=== PATIENT | male | born 1960 | race Caucasian/White ===

== ENCOUNTER 2023-07-04 05:38 | Observation (INO) ==
--- NOTE | 2023-06-29 09:24 | Anesthesiology Consultation ---
Date of Service June 29, 2023 Assessment & Plan (1) Encounter for pre-operative examination: Chart Review Chart Review: Acceptable Risk for Surgery and Patient NOT seen in Pre Admission Testing -Infectious Disease screening: Per PAT nursing assessment on 06/28/23. No known infectious disease contacts in past 10 days or current infectious disease symptoms. No recent travel outside the country. History Surgery Operation Date: 07/04/23 08:40 Proposed Procedures p Laparoscopic Robotic Assisted Radical Retropubic Prostatectomy, Possible Open, Possible Pelvic Lymph Node Dissection - Vu Bailey MD Height/Weight Height: 5 ft 9 in Weight: 83.915 kg Allergies Allergy/AdvReac Type Severity Reaction Status Date / Time No Known Allergies Allergy Verified 06/28/23 15:36 Medications Home Medications Medication Instructions Recorded Confirmed Last Taken aspirin 81 mg tablet,delayed 81 mg PO 2XWK 05/31/23 06/28/23 Unknown release multivitamin 1 tab PO 3XWK 05/31/23 06/28/23 Unknown Past Medical History Medical History Benign localized prostatic hyperplasia with lower urinary tract symptoms (LUTS) History of COVID-19 diagnosed 03/2021--mild symptoms, no symptoms now History of kidney stones Snores has not been tested for sleep apnea Past Family History Family History Other No family history of adverse response to anesthesia Past Surgical History Surgical History History of appendectomy History of arthroscopy of right knee History of bilateral inguinal hernia repair History of colonoscopy History of esophagogastroduodenoscopy (EGD) History of eye surgery multiple on both eyes after lasik eye surgery History of photorefractive keratectomy (PRK) History of prostate biopsy History of shoulder surgery left History of tonsillectomy History of tooth extraction History of wisdom tooth extraction Hx of LASIK Social History Smoking Status: Light tobacco smoker Smoking cigarettes per day: takes 4 days to go through a pack of cigs (advised on policy) Do You Dip or Chew Tobacco: No Hx Alcohol Use: Yes (very rarely has a beer) Alcohol type: beer alcohol intake frequency: holidays/special occasions only Hx Substance Use: No substance use type: does not use Lab Results Anesthesia Preop Results Results Anesthesia Widget: WBC 9.57 K/ul (4.8-10.8) 06/22/23 Hgb 15.7 g/dl (14.0-18.0) 06/22/23 Hct 46.1 % (42.0-52.0) 06/22/23 Plt 304 K/uL (130-400) 06/22/23 Na 137 mmol/L (136-145) 06/22/23 K 4.0 mmol/L (3.5-5.1) 06/22/23 Cl 104 mmol/L (98-107) 06/22/23 CO2 28 mmol/L (21-32) 06/22/23 BUN 19 mg/dl (6-23) 06/22/23 Creat 0.99 mg/dl (0.6-1.4) 06/22/23 Glucose Level 92 mg/dl (70-99(Fasting)) 06/22/23 Testing Laboratory Results 06/22/23= URINE CULTURE: No growth- less than 1000 colonies/ml Electrocardiogram Date: 06/22/23 Findings: + NSR @ (73bpm ) Normal EKG per cardio Chest X-Ray Date: 06/22/23 Findings: + NAD
[2023-07-04] MEDS ORDERED: HEPARIN SOD 5,000 UNIT/0.5 ML VIAL SQ SCH (06:00)
[2023-07-04] MEDS ORDERED: LR 15ML/HR IV SCH (06:00)
[2023-07-04] MEDS ORDERED: ePHEDrine sulfate 50 MG/ML AMP IV PRN (06:33)
[2023-07-04] MEDS ORDERED: ATROPINE SULFATE 0.1 MG/ML 10ML SYR IV PRN (06:33)
[2023-07-04] MEDS ORDERED: ONDANSETRON INJ 2 MG/ML 2 ML VIAL IV PRN ×2 (06:33→13:16)
[2023-07-04] MEDS ORDERED: SCOPOLAMINE 1 MG TDSY TD ONE ×2 (06:44→06:47)
[2023-07-04] MEDS ORDERED: PROPOFOL IV EMULSION 10 MG/ML 20 ML VIAL IV ONE (06:47)
[2023-07-04] MEDS ORDERED: fentaNYL citrate PF 100 MCG/2 ML VIAL ONE ×3 (06:47→10:52)
[2023-07-04] MEDS ORDERED: ROCURONIUM BROMIDE 10 MG/ML 5 ML VIAL IV ONE ×2 (06:47→09:09)
[2023-07-04] MEDS ORDERED: MIDAZOLAM HCL 1 MG/ML 2ML VIAL ONE (06:47)
[2023-07-04] MEDS ORDERED: LIDOCAINE 2% 2 ML VIAL/AMP(20MG/ML) INFIL ONE (06:52)
[2023-07-04] MEDS ORDERED: BUPIVACAINE 0.5 % 5 MG/1 ML MPF 30ML VIAL ONE (07:09)
--- NOTE | 2023-07-04 07:34 | History & Physical Bridge Note ---
Date of Service July 04, 2023 History & Physical Bridge Note I have examined the patient, reviewed the History & Physical and in the interval since the performance of the History & Physical I have noted the following changes of clinical significance: no changes noted
--- NOTE | 2023-07-04 07:45 | History & Physical Bridge Note ---
Date of Service July 04, 2023 History & Physical Bridge Note I have examined the patient, reviewed the History & Physical and in the interval since the performance of the History & Physical I have noted the following changes of clinical significance: no changes noted CLARIFICATION - WE ARE PERFORMING A ROBOTIC ASSISTED SIMPLE PROSTATECTOMY, NOT A RADICAL PROSTATECTOMY
[2023-07-04] MEDS ORDERED: ONDANSETRON INJ 2 MG/ML 2 ML VIAL ONE (09:09)
[2023-07-04] MEDS ORDERED: SURGICEL ABSORB HEMOSTAT 2IN X 14IN TOP ONE (10:30)
[2023-07-04] MEDS ORDERED: SUGAMMADEX SODIUM 200 MG/2 ML VIAL IV ONE (11:30)
--- NOTE | 2023-07-04 12:18 | Operative Report ---
PG Post Operative Report Pre & Post Diagnosis Operation Date: 07/04/23 07:30 Pre-Op Diagnosis: Benign Localized Prostatic Hyperplasia with Lower Urinary Tract Symptoms Post-Op Diagnosis: Benign Localized Prostatic Hyperplasia with Lower Urinary Tract Symptoms I identified the patient and participated in the time-out.: Yes Procedure Operation Date: 07/04/23 07:30 Actual Procedures p Robotic Assisted Laparoscopic Simple Prostatectomy, Possible Pelvic Lymph Node Dissection(Not Applicable) - Vu Bailey MD Surgeon Vu Bailey MD Boiler Tube Reamer Lillie Gomes Estimated Blood Loss 250 Findings Consistent with Post-Op Diagnosis Specimens Prostate Description of Procedure Patient was identified in the preoperative holding area appropriate informed consents reviewed and completed he was transported to the operating suite. Upon arrival he was placed in supine position, adequate general anesthesia was induced, appropriate biotics were administered. He was sterilely prepped and draped in standard fashion. On the sterile field a Charles catheter was inserted. Veress needle was passed per umbilicus and the abdomen insufflated. Of note he has had a prior right open appendectomy, because of this I entered the abdomen in the left lower quadrant with the robotic port and Visiport element. Inspection revealed adhesive disease around the midline and his prior appendectomy site. I marked all port sites in standard robotic prostatectomy fashion and placed the left-sided ports and the 5 mm aquatics assistant department head port first. Utilizing these ports I was able to perform lysis of adhesions. This took approximately 25 minutes. This freed the abdominal wall and allowed placement of the remainder of the ports. The robot was then docked after the patient was placed in slight Trendelenburg position. After completing lysis of adhesions with the robot, I was able to inflate the bladder with normal saline. This allowed a clear demarcation of the dome of the bladder and I made an upper posterior wall transverse incision of approximately 10 cm. Bladder was drained and internally inspected. He has a very large intravesical median lobe with inflammation around it. Ureteral orifices were identified and fortunately were not immediately adjacent to the prostate. I used 2 oh V-Loc sutures as retraction stitches in 4 locations around the cystotomy to facilitate visualization internally into the bladder. I then used a 0 Vicryl stitch through the intravesical median lobe to elevate the prostate. I carefully made an incision posterior to the lip of the prostate tissue with care to avoid encroachment upon the UOs. The Charles catheter balloon was deflated and withdrawn into the urethra at this time. I then completed a circumferential incision around the prostatic tissue and bladder neck. I carefully dissected onto the adenoma of the lateral lobes. Of note, his prostate is somewhat left-sided with substantially more tissue on the left than the right. He also had scant posterior tissue as most of his intravesical lobe appears to be arising from the left lateral lobe. We meticulously and carefully worked our way around the adenoma circumferentially. There was relatively good hemostasis throughout and only gentle oozing. As the prostate began to curve towards the apex I carefully worked my way down to the catheter. We visualized the catheter near the apex and I did split the prostate posteriorly to allow better visualization. I then was able to transect entirely at the level of the distal prostate. The adenoma was removed from its fossa and placed out of our immediate [id number]. Inspection at that time revealed excellent hemostasis. There was a bit of oozing from anterior veins and I oversewed this with a running 3 OV lock suture. I then proceeded to perform a full anastomosis in the fashion of a robotic radical prostatectomy. An double-armed suture was introduced from the outside of the bladder at the posterior bladder neck and ultimately sewed in running fashion around the urethra and bladder neck. This walled off the majority of the prostatic fossa and created a nice funnel type shape to the bladder outlet. Hemostasis was excellent. A new Charles catheter was passed and easily manipulated into the bladder. Before inflating the balloon I performed a closure of the cystotomy in multiple layers. I closed the inner layer with a 3-0 running chromic suture followed by a 3 oh V-Loc stitch to thicken this area and it closed muscle. I then imbricated a 2 OV lock stitch to further insulate the closure. We did test this after the first 2 layers and it was watertight. After completing the bladder closure a LEEANNA drain was inserted through the left lateralmost robotic port. The prostatic specimen was collected in an Endo Catch bag which was ultimately extracted after expansion of the periumbilical port. This fascia was then closed with a series of 0 PDS [id number] stitches. Half percent Marcaine was used to anesthetize all of the incisions and underlying subcutaneous tissues. The drain was sutured in place with a 2-0 nylon. The other incisions were closed with 4-0 Monocryl. Dermabond was placed over the incisions. There were no complications. The specimen was passed off the table for pathology. Lillie Gomes assisted from incision to closure and throughout the whole case. I attest to the content of the Intraoperative Record and any orders documented therein. Any exceptions are noted below.
[2023-07-04] MEDS: fentaNYL citrate PF 100 MCG/2 ML VIAL IV PRN ×2 (12:19→12:39)
[2023-07-04 12:35] LABS: Basophils # (auto) 0.05 K/uL (0.00-0.20); Basophils % (auto) 0.3 %; Eosinophils # (auto) 0.01 K/uL (0.00-0.50); Eosinophils % (auto) 0.1 %; Hematocrit (blood only) 43.3 % (42.0-52.0); Hemoglobin 14.9 g/dl (14.0-18.0); Immature Granulocytes # (auto) 0.05 K/uL (0.01-0.20); Immature Granulocytes % (auto) 0.3 %; Lymphocytes # (auto) 1.75 K/uL (1.20-3.40); Lymphocytes % (auto) 10.3 %; Mean Corpuscular Hgb Conc 34.4 g/dL (32.0-36.0); Mean Corpuscular Volume 92.9 fL (80.0-100.0); Mean Platelet Volume 8.5 fL (9.4-12.4); Monocytes # (auto) 0.86 K/uL (0.11-0.59); Neutrophils # (auto) 14.32 K/uL (1.40-6.50); Platelet Count 299 K/uL (130-400); RDW Coefficient of Variation 12.8 % (11.5-14.5); RDW Standard Deviation 43.3 fL (36.4-46.3); Red Blood Count 4.66 M/uL (4.70-6.10); White Blood Count 17.04 K/ul (4.8-10.8)
[2023-07-04 12:54] LABS: Calcium 8.6 mg/dl (8.6-10.3); Potassium 4.5 mmol/L (3.5-5.1)
[2023-07-04 13:00] LABS: BUN Creatinine Ratio 17.4 (10-20); Creatinine Clr Calc Pharmacy 62.5 ml/min; Est GFR (African American) 73.4 ml/min; Est GFR (Non-African American) 63.3 ml/min
[2023-07-04] MEDS ORDERED: oxyBUTYnin chloride 5 MG TAB PO PRN (13:16)
[2023-07-04] MEDS ORDERED: ACETAMINOPHEN 325 MG TAB PO PRN (13:16)
[2023-07-04] MEDS ORDERED: oxyCODONE HCL IR 5 MG TAB (IMMEDIATE RELEASE) PO PRN (13:16)
[2023-07-04] MEDS ORDERED: MoRPHine SULFATE 2 MG/ML CARP IV PRN (13:16)
--- NOTE | 2023-07-04 13:28 | Anesthesiology Progress Note ---
Date of Service July 04, 2023 Anesthesia Post Procedure Vital Signs Vital Signs: Temp Pulse Pulse Resp BP BP Pulse Ox 07/04/23 13:15 98.1 F 73 16 143/84 H 98 07/04/23 13:00 97.3 F L 84 12 139/81 95 07/04/23 12:50 83 12 135/76 98 07/04/23 12:40 75 12 152/88 H 99 07/04/23 12:30 87 13 131/80 98 07/04/23 12:20 74 12 122/82 99 07/04/23 12:11 97.0 F L 84 13 135/88 100 07/04/23 06:34 98.6 F 61 18 113/77 97 O2 Del Method O2 Flow Rate 07/04/23 13:15 Room Air 07/04/23 13:00 Room Air 07/04/23 12:50 Oxymask 3 07/04/23 12:40 Oxymask 5 07/04/23 12:30 Oxymask 9 07/04/23 12:20 Oxymask 9 07/04/23 12:11 Oxymask 9 07/04/23 06:34 Room Air Pain Intensity Abdomen: Pain Intensity: 6 Transfer of Care Handoff Completed per policy Notes Mental Status: alert / awake / arousable and participated in evaluation Patient Amnestic to Procedure: Yes Nausea / Vomiting: adequately controlled Pain: adequately controlled Airway Patency, RR, SpO2: stable & adequate BP & HR: stable & adequate Hydration State: stable & adequate Anesthetic Complications: no major complications apparent and Pt Satisfied with anesthetic care
[2023-07-04] MEDS: LACTATED RINGER'S 1,000 ML IV SCH ×2 (13:32→23:13)
[2023-07-04] MEDS: oxyCODONE HCL IR 5 MG TAB (IMMEDIATE RELEASE) PO PRN (13:34)
[2023-07-04] MEDS: MoRPHine SULFATE 4 MG/ML 1 ML CARP\\VIAL IV PRN (14:59)
[2023-07-04] MEDS ORDERED: CHECK SCOPOLAMINE PATCH PLACEMENT SCH (16:00)
[2023-07-04] MEDS: ceFAZolin 2000MG 2,000 MG/15 ML SYR IV SCH ×2 (16:35→23:13)
[2023-07-04] MEDS ORDERED: diazePAM 2 MG TABLET PO PRN (16:40)
[2023-07-04] MEDS ORDERED: KETOROLAC TROMETHAMINE 15 MG/ML VIAL IM PRN (16:41)
[2023-07-04] MEDS: HEPARIN SOD 5,000 UNIT/0.5 ML VIAL SQ SCH (20:03)
[2023-07-04] MEDS: DOCUSATE SODIUM 100 MG CAP PO SCH (20:03)
[2023-07-05] MEDS ORDERED: FAMOTIDINE 10 MG TABLET PO ONE (00:59)
[2023-07-05] MEDS: CALCIUM CARBONATE 500 MG CHEWABLE TAB PO PRN ×2 (01:12→20:25)
[2023-07-05] MEDS: MoRPHine SULFATE 4 MG/ML 1 ML CARP\\VIAL IV PRN (05:01)
[2023-07-05 06:58] LABS: Hematocrit (blood only) 40.4 % (42.0-52.0); Hemoglobin 13.5 g/dl (14.0-18.0); Mean Corpuscular Hemoglobin 31.6 pg (25.0-34.0); Mean Corpuscular Hgb Conc 33.4 g/dL (32.0-36.0); Mean Corpuscular Volume 94.6 fL (80.0-100.0); Platelet Count 256 K/uL (130-400); RDW Coefficient of Variation 12.8 % (11.5-14.5); RDW Standard Deviation 44.5 fL (36.4-46.3); Red Blood Count 4.27 M/uL (4.70-6.10); White Blood Count 15.52 K/ul (4.8-10.8)
[2023-07-05 07:30] LABS: Basophils # (auto) 0.03 K/uL (0.00-0.20); Basophils % (auto) 0.2 %; Eosinophils # (auto) 0.09 K/uL (0.00-0.50); Eosinophils % (auto) 0.6 %; Immature Granulocytes % (auto) 0.6 %; Lymphocytes # (auto) 0.51 K/uL (1.20-3.40); Lymphocytes % (auto) 3.3 %; Monocytes # (auto) 0.78 K/uL (0.11-0.59); Neutrophils # (auto) 14.01 K/uL (1.40-6.50); Neutrophils % (auto) 90.3 %
[2023-07-05 07:31] LABS: Calcium 8.5 mg/dl (8.6-10.3); Potassium 4.4 mmol/L (3.5-5.1)
[2023-07-05 07:36] LABS: BUN Creatinine Ratio 15.8 (10-20); Creatinine Clr Calc Pharmacy 56.8 ml/min; Est GFR (African American) 65.5 ml/min; Est GFR (Non-African American) 56.5 ml/min
--- NOTE | 2023-07-05 08:09 | Urology Progress Note ---
Date of Service July 05, 2023 Assessment & Plan (1) Benign localized prostatic hyperplasia with lower urinary tract symptoms (LUTS): Plan: BPH with substantial enlargement now status post robotic simple prostatectomy Recovery on pace Labs appropriate Ambulate today, advance diet Possible DC home tomorrow Admission and Anticipated Discharge Date Admission Date: July 04, 2023 Subjective Doing well overall Has some expected abdominal discomfort and bladder spasm type pain but his urine is clearing appropriately Appropriate LEEANNA output Labs all stable and expected Creatinine 1.3, hemoglobin 13.5 No nausea, abdomen soft and not distended Progressing appropriately Physical Exam Physical Exam: Incisions appropriate, LEEANNA with minimal output, urine clearing Results & Data Vital Signs (Past 12 Hours) Vital Signs Temp Pulse Resp BP Pulse Ox O2 Del Method 07/05/23 07:20 37.1 C 80 16 111/77 94 Room Air 07/05/23 04:30 37 C 97 H 18 115/73 95 Room Air 07/05/23 03:05 Room Air 07/05/23 00:30 36.6 C 87 18 101/59 L 92 Room Air 07/04/23 20:32 36.9 C 83 18 113/67 97 Room Air PG Care Time/CCT Total # of Minutes Spent Total Time Spent with Patient: Total time spent is greater than 50% in coordination of care (as documented) at patient's floor/unit and/or counseling patient: Coding Level of Care Code 05820 SUB INP/OBS CARE 2/35MIN Diagnoses Benign localized prostatic hyperplasia with lower urinary tract symptoms (LUTS) N40.1
[2023-07-05] MEDS: DOCUSATE SODIUM 100 MG CAP PO SCH ×2 (08:18→20:25)
[2023-07-05] MEDS: HEPARIN SOD 5,000 UNIT/0.5 ML VIAL SQ SCH ×2 (08:19→20:25)
[2023-07-05] MEDS: LACTATED RINGER'S 1,000 ML IV SCH ×2 (08:21→16:44)
[2023-07-05] MEDS: oxyCODONE HCL IR 5 MG TAB (IMMEDIATE RELEASE) PO PRN ×2 (16:09→23:15)
[2023-07-06] MEDS: LACTATED RINGER'S 1,000 ML IV SCH (02:18)
[2023-07-06] MEDS: oxyCODONE HCL IR 5 MG TAB (IMMEDIATE RELEASE) PO PRN ×3 (06:19→19:09)
[2023-07-06 07:34] LABS: Basophils # (auto) 0.02 K/uL (0.00-0.20); Basophils % (auto) 0.1 %; Eosinophils # (auto) 0.29 K/uL (0.00-0.50); Eosinophils % (auto) 2.2 %; Hematocrit (blood only) 34.2 % (42.0-52.0); Immature Granulocytes # (auto) 0.06 K/uL (0.01-0.20); Immature Granulocytes % (auto) 0.4 %; Lymphocytes # (auto) 0.99 K/uL (1.20-3.40); Lymphocytes % (auto) 7.4 %; Mean Corpuscular Hemoglobin 32.7 pg (25.0-34.0); Mean Corpuscular Hgb Conc 35.1 g/dL (32.0-36.0); Mean Corpuscular Volume 93.2 fL (80.0-100.0); Mean Platelet Volume 9.3 fL (9.4-12.4); Monocytes # (auto) 0.89 K/uL (0.11-0.59); Monocytes % (auto) 6.7 %; Neutrophils # (auto) 11.11 K/uL (1.40-6.50); Neutrophils % (auto) 83.2 %; Platelet Count 201 K/uL (130-400); RDW Coefficient of Variation 12.7 % (11.5-14.5); RDW Standard Deviation 43.7 fL (36.4-46.3); Red Blood Count 3.67 M/uL (4.70-6.10); White Blood Count 13.36 K/ul (4.8-10.8)
[2023-07-06 08:20] LABS: BUN Creatinine Ratio 16.5 (10-20); Calcium 8.2 mg/dl (8.6-10.3); Creatinine Clr Calc Pharmacy 77.9 ml/min; Est GFR (African American) 95.9 ml/min; Est GFR (Non-African American) 82.7 ml/min; Potassium 4.1 mmol/L (3.5-5.1)
[2023-07-06] MEDS: DOCUSATE SODIUM 100 MG CAP PO SCH ×2 (08:39→20:53)
[2023-07-06] MEDS: HEPARIN SOD 5,000 UNIT/0.5 ML VIAL SQ SCH ×2 (09:14→20:53)
--- NOTE | 2023-07-06 10:25 | Urology Progress Note ---
Date of Service July 06, 2023 Assessment & Plan (1) Benign localized prostatic hyperplasia with lower urinary tract symptoms (LUTS): Plan -BPH with substantial enlargement now postop day #2 status post robotic simple prostatectomy -Progressing appropriately -Afebrile and hemodynamically stable. -Labs reviewed and stable - white count 13.36, hemoglobin 12, creatinine 0.97. -LEEANNA with minimal serosanguineous drainage. -Charles draining appropriatelyurine is light pink. -Continue diet. -D/C IV fluids. Encourage hydration. -Encourage ambulation. -Maintain Charles catheter -Remove LEEANNA drain -Continue supportive care and pain management as needed. -Will reassess after lunch with plans for possible discharge home later today or tomorrow pending patient progression. Admission and Anticipated Discharge Date Admission Date: July 04, 2023 Subjective Patient examined at bedside this AM with . Awake, resting in bed on arrival. No acute distress. No acute issues overnight. Denies fever, chills, nausea, vomiting. Still with abdominal discomfort, mostly with movement/ambulation. Managing with medication. LEEANNA with minimal serosanguineous drainage. Charles intact and draining pink urine. Tolerating diet. Has ambulated without issue. Reports some indigestion. No belching or flatus. Review of Systems Constitutional: as per Subjective / HPI Gastrointestinal: as per Subjective / HPI Genitourinary: + as per Subjective / HPI Physical Exam Constitutional: no acute distress Respiratory: no respiratory distress and no labored breathing Gastrointestinal (Abdomen): Abdomen soft, not distended, mild tenderness with palpation. Incisions appropriate, Dermabond intact. LEEANNA intact with minimal serosanguineous drainage. Musculoskeletal: Head/Neck/Chest: normocephalic Skin: No visible rashes or lesions to exposed skin areas Neurologic: moves all extremities and awake Psychiatric: A+Ox3, euthymic affect Genitourinary: Charles intact and draining pink urine Results & Data Vital Signs (Past 12 Hours) Vital Signs Temp Pulse Resp BP Pulse Ox O2 Del Method 07/06/23 07:30 37 C 90 18 109/66 93 Room Air 07/05/23 23:12 97 H 114/68 PG Care Time/CCT Total # of Minutes Spent Total Time Spent with Patient: Total time spent is greater than 50% in coordination of care (as documented) at patient's floor/unit and/or counseling patient: Coding Level of Care Code None Diagnoses Benign localized prostatic hyperplasia with lower urinary tract symptoms (LUTS) N40.1
[2023-07-06] MEDS ORDERED: MAGNESIUM HYDROXIDE SUSP 30 ML UDC PO PRN (14:16)
[2023-07-06] MEDS: CALCIUM CARBONATE 500 MG CHEWABLE TAB PO PRN (22:32)
[2023-07-07] MEDS: oxyCODONE HCL IR 5 MG TAB (IMMEDIATE RELEASE) PO PRN ×2 (06:50→12:02)
[2023-07-07 07:43] LABS: Basophils # (auto) 0.01 K/uL (0.00-0.20); Basophils % (auto) 0.1 %; Eosinophils # (auto) 0.34 K/uL (0.00-0.50); Hematocrit (blood only) 32.2 % (42.0-52.0); Hemoglobin 11.1 g/dl (14.0-18.0); Immature Granulocytes # (auto) 0.04 K/uL (0.01-0.20); Immature Granulocytes % (auto) 0.5 %; Lymphocytes # (auto) 1.11 K/uL (1.20-3.40); Lymphocytes % (auto) 13.1 %; Mean Corpuscular Hemoglobin 32.1 pg (25.0-34.0); Mean Corpuscular Hgb Conc 34.5 g/dL (32.0-36.0); Mean Corpuscular Volume 93.1 fL (80.0-100.0); Mean Platelet Volume 9.2 fL (9.4-12.4); Monocytes # (auto) 0.84 K/uL (0.11-0.59); Monocytes % (auto) 9.9 %; Neutrophils # (auto) 6.14 K/uL (1.40-6.50); Neutrophils % (auto) 72.4 %; Platelet Count 213 K/uL (130-400); RDW Coefficient of Variation 12.6 % (11.5-14.5); RDW Standard Deviation 43.2 fL (36.4-46.3); Red Blood Count 3.46 M/uL (4.70-6.10); White Blood Count 8.48 K/ul (4.8-10.8)
[2023-07-07 08:11] LABS: BUN Creatinine Ratio 15.3 (10-20); Calcium 8.6 mg/dl (8.6-10.3); Creatinine Clr Calc Pharmacy 77.2 ml/min; Est GFR (African American) 94.7 ml/min; Est GFR (Non-African American) 81.7 ml/min
[2023-07-07] MEDS ORDERED: LIDOCAINE 2% JELLY 5 ML TUBE EXT PRN (08:21)
[2023-07-07] MEDS: DOCUSATE SODIUM 100 MG CAP PO SCH (08:39)
[2023-07-07] MEDS: HEPARIN SOD 5,000 UNIT/0.5 ML VIAL SQ SCH (08:39)
--- NOTE | 2023-07-07 10:34 | Urology Progress Note ---
Date of Service July 07, 2023 Assessment & Plan (1) Benign localized prostatic hyperplasia with lower urinary tract symptoms (LUTS): Plan -BPH with substantial enlargement now postop day #3 status post robotic simple prostatectomy -Progressing appropriately -Afebrile and hemodynamically stable. -Labs reviewed and stable - white count 8.48, hemoglobin 11.1, creatinine 0.98. -Charles draining appropriatelyurine is light pink. -Tolerating diet. -Ambulating without issue. -Pain managed with medication. -Stable for discharge home today with Charles catheter. -Postoperative follow-up appointments in place. -Discharge instructions reviewed, all questions were answered. Admission and Anticipated Discharge Date Admission Date: July 04, 2023 Subjective Patient examined at bedside this AM. Awake, resting in bed on arrival. No acute distress. No acute issues overnight. Denies fever, chills, nausea, vomiting. Still with abdominal discomfort, mostly with movement/ambulation. Managing with medication. LEEANNA drain removed yesterday. Charles intact and draining pink urine. Tolerating diet. Has ambulated without issue. +Flatus. Review of Systems Constitutional: as per Subjective / HPI; no fever and no chills Cardiovascular: no chest pain, no dyspnea and no lightheadedness Gastrointestinal: as per Subjective / HPI; no heartburn, no nausea and no vomiting Genitourinary: + as per Subjective / HPI Physical Exam Constitutional: no acute distress Respiratory: no respiratory distress and no labored breathing Gastrointestinal (Abdomen): Abdomen soft, not distended, mild tenderness with palpation. Incisions appropriate, Dermabond intact. Musculoskeletal: Head/Neck/Chest: normocephalic Skin: No visible rashes or lesions to exposed skin areas Neurologic: moves all extremities and awake Psychiatric: A+Ox3, euthymic affect Genitourinary: Charles intact and draining pink urine Results & Data Vital Signs (Past 12 Hours) Vital Signs Temp Pulse Resp BP Pulse Ox O2 Del Method 07/07/23 07:14 37.2 C 66 16 96/62 L 97 Room Air PG Care Time/CCT Total # of Minutes Spent Total Time Spent with Patient: Total time spent is greater than 50% in coordination of care (as documented) at patient's floor/unit and/or counseling patient: Coding Level of Care Code None Diagnoses Benign localized prostatic hyperplasia with lower urinary tract symptoms (LUTS) N40.1
--- NOTE | 2023-07-07 13:42 | Discharge Summary ---
Date of Service July 07, 2023 Admission HPI Per Admitting Provider 62-year-old male with BPH with substantial enlargement admitted for robotic simple prostatectomy Admission Exam Per Admitting Provider Constitutional well developed and well nourished Neck neck nontender Respiratory normal respiratory effort; no respiratory distress and does not use accessory muscles Cardiovascular Rate/Rhythm: regular rate Vessels: radial pulses present Extremities: no edema Gastrointestinal (Abdomen) Inspection/Auscultation: abdomen normal to inspection Percussion/Palpation: abdomen soft; abdomen nontender and no guarding Musculoskeletal Head/Neck/Chest: normocephalic and head atraumatic Extremities: extremities normal to inspection Skin no rashes and no lesions Trauma: no evidence of skin trauma Neurologic awake; not obtunded Speech / Cognition: normal speech Motor/Sensory: no tremor Psychiatric Orientation: alert and oriented x 3 Genitourinary no CVA tenderness Lymphatic no lymphadenopathy Principal Diagnosis BPH Discharge Exam Constitutional no acute distress Respiratory no respiratory distress and no labored breathing Gastrointestinal (Abdomen) Soft, nondistended, mild tenderness with palpation. Incisions appropriate, Dermabond intact. Musculoskeletal Head/Neck/Chest: normocephalic Neurologic moves all extremities and awake Psychiatric A+Ox3, euthymic affect Genitourinary Charles draining pink urine Discharge Data Allergies Allergy/AdvReac Type Severity Reaction Status Date / Time No Known Allergies Allergy Verified 07/04/23 06:32 Procedures Performed Operation Date: 07/04/23 07:30 Actual Procedures p Robotic Assisted Laparoscopic Simple Prostatectomy(Not Applicable) - Vu Bailey MD Hospital Course (1) Benign localized prostatic hyperplasia with lower urinary tract symptoms ( LUTS): Plan 62-year-old male admitted status post robotic simple prostatectomy with Dr. Bailey on 07/04/2023. POD #1- BPH with substantial enlargement now status post robotic simple prostatectomy Recovery on pace Labs appropriate Ambulate today, advance diet Possible DC home tomorrow POD #2- -BPH with substantial enlargement now postop day #2 status post robotic simple prostatectomy -Progressing appropriately -Afebrile and hemodynamically stable. -Labs reviewed and stable - white count 13.36, hemoglobin 12, creatinine 0.97. -LEEANNA with minimal serosanguineous drainage. -Charles draining appropriatelyurine is light pink. -Continue diet. -D/C IV fluids. Encourage hydration. -Encourage ambulation. -Maintain Charles catheter -Remove LEEANNA drain -Continue supportive care and pain management as needed. -Will reassess after lunch with plans for possible discharge home later today or tomorrow pending patient progression. POD #3- -BPH with substantial enlargement now postop day #3 status post robotic simple prostatectomy -Progressing appropriately -Afebrile and hemodynamically stable. -Labs reviewed and stable - white count 8.48, hemoglobin 11.1, creatinine 0.98. -Charles draining appropriatelyurine is light pink. -Tolerating diet. -Ambulating without issue. -Pain managed with medication. -Stable for discharge home today with Charles catheter. -Postoperative follow-up appointments in place. -Discharge instructions reviewed, all questions were answered. Total Time Total Time Spent Total Time Spent (In Minutes): 15 Discharge Plan Discharge Items Patient Disposition: Home - Self-Care Reason For Visit: Benign Localized Prostatic Hyperplasia with Lower Discharge Diagnosis: BPH Activity: Per Instructions section Lifting: No more than 25 pounds Bathing Comment: OK to shower. No tub baths or soaks. Sexual Activity: Wait until after follow-up appointment Exercise/Sports: Wait until after follow-up appointment Driving/Machine Use: Do not drive if taking prescription pain medication Non-emergency contact: Surgeon and Urologist Call non-emergency contact if: you have any medication questions, your symptoms worsen, your pain is not controlled, you have a fever, your temperature is above 101, your wound has increased redness, your wound has increased drainage and your wound pain has increased Follow-up/Referrals: Vu Bailey MD [Physician] - Lamin Luna M.D. [Primary Care Provider] - [facility],Nurse [FAKE FOR SCHEDULES] - 07/13/23 11:00 am Diet: Regular Addtl Attending Provider Instructions: Please take all medications as prescribed and keep all follow-ups as scheduled. Please call our office at [phone] with any questions, concerns or need to reschedule appointments for any reason. We are happy to assist you. -- You are scheduled for a cystogram at [facility] on 07/13/23 at 10AM and follow-up for catheter removal in the urology office on 07/13/23 at 11AM. Please call with any questions. -- You may resume aspirin after catheter removal. -- We have sent an antibiotic to your pharmacy of choice. Please begin antibiotic as prescribed the day BEFORE your scheduled catheter removal at [facility]. Please continue antibiotic every 12 hours until complete. -- Oxybutynin twice daily as needed was sent to your pharmacy for bladder spasms. -- Pyridium twice daily as needed was sent to your pharmacy for pain/burning with urination. This will turn your urine orange. -- Percocet as needed for pain was also sent. Activity: We recommend having someone with you for the first few days after surgery to help care for you. For the first 2 weeks after surgery, we would like you to get up and walk around your house. However, we recommend limit physical activity that would increase your heart rate. This will allow your body to rest and heal. Take naps if you feel tired. Don't lift anything heavier than 25 pounds, mow the law or ride a bicycle until your follow-up appointment. Please avoid long car rides. Home Care: Unless directed otherwise, drink 6 to 8 glasses of water a day (enough to keep your urine light colored). This will also help keep a healthy flow of urine. We recommend using a stool softener for the first two weeks to avoid constipation. Charles Catheter or Suprapubic Catheter care: Keep the catheter well secured with either a leg back or leg strap with large bag. Empty your bag when it's about half full. You may notice some blood in the bag. This is normal after surgery and while the catheter is in place. Use mild soap (such as Dove or Dial) and water to wash the catheter and the head of your penis daily, or more frequently if needed. Return to your normal diet, we encourage good protein intake to promote healing. You may shower as normal. Please avoid tub baths or soaking until catheter removed and incisions well healed. Wearing sweat pants while you have the catheter is recommended, they will be more comfortable. Follow-up Your follow up appointments for having your catheter removed, and follow up with your physician should already be scheduled. If you have any questions regarding this, please contact our office. Your final pathology report will be discussed at your physician follow-up appointment. Call [facility] at [phone] right away if you have any of the following: Chest pain or trouble breathing (call [phone] or go to the hospital) Fever of 101F or higher, uncontrolled vomiting Heavy bleeding, clots, or bright red blood from the catheter Catheter that falls out or stops draining Foul-smelling discharge from your catheter Redness, swelling, warmth, or increased pain at your incision site Drainage, pus, or bleeding from your incision Pending Studies at Discharge: Yes Studies:: pathology Stand-Alone Forms: My [facility], Smoking Cessation Medications and DC Order Prescriptions: New oxycodone-acetaminophen [Percocet] 5-325 mg tablet 1 tab PO Q8H PRN (Reason: pain) Qty: 10 0RF oxybutynin chloride 5 mg tablet 5 mg PO BID PRN (Reason: bladder spasms) Qty: 10 0RF phenazopyridine [Pyridium] 100 mg tablet 100 mg PO BID PRN (Reason: pain) Qty: 6 0RF Continued aspirin 81 mg tablet,delayed release (DR/EC) 81 mg PO 2XWK multivitamin Tablet 1 tab PO 3XWK Patient Comments: takes mon/mon/mon Discharge Orders: Discharge Order (Routine); Ordered 07/07/23 Ordered By: Lillie Gomes Admission Data Admit Date/Time: 07/04/23 12:15 Attending Provider: Vu Bailey Admit Provider: Vu Bailey Primary Care Provider: Lamin Luna Other Interventions: Discharge Summary Assessment (RN) Last Done: 07/07/23 10:32 Coding Level of Care Code 92215 IN/OBS DISCH 30 MIN/LESS Diagnoses Benign localized prostatic hyperplasia with lower urinary tract symptoms (LUTS) N40.1
== END 2023-07-07 12:00 | disposition home or self-care (01) ==
LOC: ASU 05:38 → 3W 12:15 → INTOOBSV 12:15